=== PATIENT | female | born 1955 | race Caucasian/White ===

== ENCOUNTER 2024-05-23 11:53 | Inpatient (IN) | payer MEDICARE ==
[2024-05-23] MEDS ORDERED: Naloxone 0.4 MG/ML SDV IVPUSH PRN (14:18)
[2024-05-23 14:34] LABS: BASOPHILS ABSOLUTE AUTO 0.1 x10-3/uL (0.0-0.1); BASOPHILS PERCENT AUTO 0.9 % (0.2-1.5); EOSINOPHILS ABSOLUTE AUTO 0.1 x10-3/uL (0.0-0.8); EOSINOPHILS PERCENT AUTO 1.2 % (0.6-8.1); HEMATOCRIT 39.4 % (34.2-48.2); HEMOGLOBIN 13.3 g/dL (11.4-15.5); LYMPHOCYTES ABSOLUTE AUTO 0.8 x10-3/uL (1.0-4.4); LYMPHOCYTES PERCENT AUTO 10.8 % (18.4-52.1); MEAN CORPUSCULAR HEMOGLOBIN 32.9 pg (23.9-33.9); MEAN CORPUSCULAR HGB CONC 33.9 g/dL (31.9-34.8); MEAN CORPUSCULAR VOLUME 97.2 fL (76.7-100.5); MONOCYTES ABSOLUTE AUTO 0.2 x10-3/uL (0.3-1.0); MONOCYTES PERCENT AUTO 3.1 % (4.4-15.7); NEUTROPHILS ABSOLUTE AUTO 6.5 x10-3/uL (1.5-6.3); PLATELET COUNT,PLT 157 x10(3)uL (151-488); RED BLOOD CELL COUNT 4.05 x10(6)uL (3.60-5.20); RED CELL DISTRIBUTION WIDTH 15.5 % (12.3-16.5); WHITE BLOOD CELL COUNT,WBC 7.7 x10-3/uL (3.0-10.3)
[2024-05-23 14:43] LABS: A/G RATIO 0.9; ALANINE AMINOTRANSFERASE,ALT 39 U/L (12-36); ALBUMIN 3.4 g/dL (3.2-4.6); ALKALINE PHOSPHATASE 171 IU/L (56-112); ASPARTATE AMNIOTRANSFERASE,AST 53 IU/L (5-25); BILIRUBIN TOTAL 0.9 mg/dL (0.1-1.3); BLOOD UREA NITROGEN,BUN 12 mg/dL (7-18); BUN/CREATININE RATIO 13.3 (9-20); CALCIUM 8.7 mg/dL (8.6-10.2); CARBON DIOXIDE,CO2 27 mmol/L (21-32); CHLORIDE,CL 108 mmol/L (100-110); CREATININE 0.9 mg/dL (0.55-1.02); ESTIMATED GFR 69 mL/min (>60); GLUCOSE RANDOM 77 mg/dL (80-116); POTASSIUM,K 3.3 mmol/L (3.5-5.3); PROTEIN TOTAL,TP 7.4 g/dL (6.0-8.0); SODIUM,NA 143 mmol/L (135-145)
[2024-05-23] MEDS: Acetaminophen 325 MG Tab PO PRN (14:54)
[2024-05-23 16:21] LABS: APPEARANCE,URINE SLIGHTLY CLOUDY (CLEAR); BILIRUBIN,URINE NEGATIVE (NEGATIVE); COLOR,URINE YELLOW (YELLOW); GLUCOSE,URINE NORMAL (NORMAL); KETONES,URINE NEGATIVE (NEGATIVE); LEUKOCYTE ESTERASE,URINE MODERATE (NEGATIVE); NITRITE,URINE NEGATIVE (NEGATIVE); OCCULT BLOOD,URINE NEGATIVE (NEGATIVE); PROTEIN,URINE TRACE mg/dL (NEGATIVE); UROBILINOGEN,URINE 1 mg/dL (NEGATIVE)
[2024-05-23 16:29] LABS: BACTERIA,URINE FEW (NS); MUCUS,URINE OCCASIONAL (NS); RBC,URINE 0-5 (0-5); SQUAMOUS EPITHELIAL CELLS,UR FEW (NS,R,O); WBC,URINE 0-5 (0-5)
[2024-05-23] MEDS: Sodium Chloride 0.9% 10 ML Syringe FLUSH PRN (16:45)
[2024-05-23] MEDS: carBAMazepine 200 MG Tab PO SCH (16:49)
[2024-05-23] MEDS: Morphine 2 MG/ML SYRINGE IVPUSH PRN (16:54)
[2024-05-23] MEDS ORDERED: traMADol 50 MG Tab PO PRN (17:32)
[2024-05-23] MEDS: Potassium Chloride 20 MEQ Tab.ER PO SCH (18:49)
[2024-05-23] MEDS: Enoxaparin 40 MG/0.4 ML Syringe SUBCUT SCH (18:49)
[2024-05-23] MEDS: traMADol 50 MG Tab PO PRN (18:50)
[2024-05-23] MEDS: Methotrexate 2.5 MG Tab PO SCH (19:19)
[2024-05-23] MEDS: Gabapentin 300 MG Cap PO SCH (21:10)
[2024-05-23] MEDS: atorvaSTATin 10 MG Tab PO SCH (21:19)
[2024-05-23] MEDS: Temazepam 15 MG Cap PO SCH (21:20)
[2024-05-24 05:34] LABS: A/G RATIO 0.8; ALANINE AMINOTRANSFERASE,ALT 30 U/L (12-36); ALBUMIN 2.7 g/dL (3.2-4.6); ALKALINE PHOSPHATASE 163 IU/L (56-112); ASPARTATE AMNIOTRANSFERASE,AST 37 IU/L (5-25); BILIRUBIN TOTAL 0.5 mg/dL (0.1-1.3); BLOOD UREA NITROGEN,BUN 12 mg/dL (7-18); BUN/CREATININE RATIO 13.3 (9-20); CALCIUM 8.2 mg/dL (8.6-10.2); CARBON DIOXIDE,CO2 29 mmol/L (21-32); CHLORIDE,CL 112 mmol/L (100-110); CREATININE 0.9 mg/dL (0.55-1.02); EST CRCL DRUG DOSING (CG) 50.23 mL/min; ESTIMATED GFR 69 mL/min (>60); GLUCOSE RANDOM 101 mg/dL (80-116); POTASSIUM,K 3.6 mmol/L (3.5-5.3); PROTEIN TOTAL,TP 5.9 g/dL (6.0-8.0); SODIUM,NA 146 mmol/L (135-145)
[2024-05-24] MEDS: Cholecalciferol (Vitamin D3) 5,000 UNIT Cap PO SCH (08:17)
[2024-05-24] MEDS: Folic Acid 0.4 MG Tab PO SCH (08:19)
[2024-05-24] MEDS: Calcium Carbonate 500 MG Tab.Chew PO PRN (16:34)
[2024-05-25 06:52] LABS: A/G RATIO 0.8; ALANINE AMINOTRANSFERASE,ALT 30 U/L (12-36); ALBUMIN 2.6 g/dL (3.2-4.6); ALKALINE PHOSPHATASE 149 IU/L (56-112); ASPARTATE AMNIOTRANSFERASE,AST 34 IU/L (5-25); BILIRUBIN TOTAL 0.6 mg/dL (0.1-1.3); BLOOD UREA NITROGEN,BUN 12 mg/dL (7-18); CALCIUM 8.1 mg/dL (8.6-10.2); CARBON DIOXIDE,CO2 28 mmol/L (21-32); CHLORIDE,CL 111 mmol/L (100-110); CREATININE 0.8 mg/dL (0.55-1.02); ESTIMATED GFR 79 mL/min (>60); GLUCOSE RANDOM 96 mg/dL (80-116); POTASSIUM,K 3.6 mmol/L (3.5-5.3); PROTEIN TOTAL,TP 5.8 g/dL (6.0-8.0); SODIUM,NA 144 mmol/L (135-145)
[2024-05-26 12:34] VITALS: BP 120/56; PULSE 83
[2024-05-26] MEDS ORDERED: Non-Formulary Medication 1 Each (Alendronate Sodium [Alendronate Sodium] 70 MG Tablet) PO SCH (17:32)
== END 2024-05-26 12:46 | disposition home or self-care (01) | DRG 74 ==
LOC: FB.CLBR 11:53 → FB.MS 14:03
PROVIDERS: ADMIT Internal Medicine; ATTEND Family Medicine
DX: G50.0 Trigeminal neuralgia (principal); G35 Multiple sclerosis; Z66 Do not resuscitate; G62.9 Polyneuropathy, unspecified; H54.7 Unspecified visual loss; J45.909 Unspecified asthma, uncomplicated; K21.9 Gastro-esophageal reflux disease without esophagitis; M19.90 Unspecified osteoarthritis, unspecified site; M79.7 Fibromyalgia; F17.210 Nicotine dependence, cigarettes, uncomplicated; R29.6 Repeated falls; R79.89 Other specified abnormal findings of blood chemistry; S60.211A Contusion of right wrist, initial encounter; W19.XXXA Unspecified fall, initial encounter; E87.6 Hypokalemia; Z96.652 Presence of left artificial knee joint; Z88.0 Allergy status to penicillin; Z79.899 Other long term (current) drug therapy; Z86.0100 Personal history of colon polyps, unspecified; Z87.19 Personal history of other diseases of the digestive system; Z90.89 Acquired absence of other organs; Z98.890 Other specified postprocedural states; Z90.49 Acquired absence of other specified parts of digestive tract; Z90.710 Acquired absence of both cervix and uterus; Z90.722 Acquired absence of ovaries, bilateral; Z93.3 Colostomy status
CPT/HCPCS: 36415; 73110-RT; 80053; 81001; 85025; 87086; 94150; 97165-GO; 99222; 99231; 99232; 99238; A9270-GY; J1650; J2270; J8610